=== PATIENT | female | born 1965 | race Caucasian/White ===

== ENCOUNTER → 2019-01-14 | Outpatient (CLI) | payer OTHER, SELFPAY ==
[2019-01-14 09:30] VITALS: BMI 45.1
--- NOTE | 2019-01-14 09:57 | RAD_ITS ---
STUDY: X-RAY - LEFT KNEE REASON FOR EXAM: Female, 53 years old. Pain, swelling TECHNIQUE: 4 view(s) of the knee. COMPARISON: None. FINDINGS: Normal visualized distal femur. Normal visualized proximal tibia and fibula. Normal proximal tibiofibular articulation. There is moderate degenerative arthrosis of the medial femorotibial compartment with moderate joint space narrowing. There is moderate degenerative arthrosis of the lateral femorotibial compartment with moderate joint space narrowing. There is moderate degenerative arthrosis of the patellofemoral articulation. Anterior soft tissue swelling RAD/Knee 4 or More Views IMPRESSION: Degenerative arthrosis with anterior soft tissue swelling, no demonstrated fracture. Electronically Signed: Anatoly Read MD at 10:19 EDT , Service support ,
== END | disposition home or self-care (01) ==
LOC: HPRAD 09:50
PROVIDERS: Family Provider Internal Medicine; PCP Internal Medicine; Referring Provider Physician Assistant Medical; Visit Provider Physician Assistant Medical
DX: S80.02XA Contusion of left knee, initial encounter (principal)
CPT/HCPCS: 73564

== ENCOUNTER → 2019-01-27 10:48 | Outpatient (CLI) | payer OTHER, SELFPAY ==
[2019-01-24 11:03] VITALS: BMI 45.1
--- NOTE | 2019-01-27 11:08 | MRI_ITS ---
STUDY: MRI LEFT KNEE REASON FOR EXAM: Female, 53 years old. Left knee pain. Fall. TECHNIQUE: Standardized fat and water weighted pulse sequences were obtained in all 3 orthogonal planes. COMPARISON: X-ray dated January 14, 2019. FINDINGS: Grade 2/3 cartilage loss of the patellofemoral articulation. Medial compartment grade 4 cartilage loss. Lateral compartment grade 3/4 cartilage loss. Subacute nondisplaced posterior lateral tibial corner fracture (sagittal image 20 series 8) with bone marrow edema/contusion extending across the tibial plateau predominating laterally. No dislocation. No acute cortical destruction. Lateral meniscus anterior horn degenerative tear (sagittal images 16 through 20 series 8). Medial meniscus extensive degeneration with extensive tear and minimal intact posterior horn tissue (sagittal images 7 through 11 series 8). Severe anterior cruciate ligament degeneration with partial tear (sagittal image 14 series 8). Normal posterior cruciate ligament. Moderate volume joint effusion. Large popliteal cyst. Moderate soft tissue swelling. Small varicose veins. Normal medial collateral ligamentous complex (MCL). Normal distal semimembranosus, gracilis and semitendinosus tendons. Normal proximal tibiofibular articulation. Normal lateral collateral (fibular) ligament. Normal popliteus tendon. Normal biceps femoris tendon. Normal medial and lateral patellar retinaculum. Normal quadriceps tendon. Normal patellar tendon. Normal Hoffa's fat pad. MRI/Lower Ext Joint Only (Routine) IMPRESSION: Subacute nondisplaced posterior lateral tibial corner fracture with corresponding bone contusion/edema Left knee moderate/severe tricompartment osteoarthritis Medial and lateral meniscal tears Severe ACL degeneration with partial tear Moderate volume joint effusion, large popliteal cyst and moderate soft tissue swelling Electronically Signed: Jay Mccoy DO at 15:05 EDT Tel , Service support ,
== END ==
PROVIDERS: Family Provider Internal Medicine; PCP Internal Medicine; Referring Provider Physician Assistant; Visit Provider Physician Assistant
DX: S80.02XA Contusion of left knee, initial encounter (principal); S83.92XA Sprain of unspecified site of left knee, initial encounter; S80.212A Abrasion, left knee, initial encounter
CPT/HCPCS: 73721

== ENCOUNTER → 2019-08-17 11:28 | Outpatient (CLI) | payer OTHER, SELFPAY ==
[2019-08-17 11:25] VITALS: BMI 45.1
--- NOTE | 2019-08-17 11:31 | RAD_ITS ---
STUDY: X-RAY - RIGHT FOOT CLINICAL: Female, 54 years old. TECHNIQUE: 3 view(s) of the foot. COMPARISON: None. FINDINGS: There are multiple fractures involving the necks of the second, third, fourth and fifth metatarsals with minimal angulation. Marked osteoporosis is noted. There is plantar heel spur. No soft tissue swelling seen No other abnormality detected RAD/Foot min 3 Views IMPRESSION: Fractures of the necks of the second, third, fourth and fifth metatarsal with minimal angulation Electronically Signed: Jonathan Shah, at 12:18 EST Tel , Service support ,
== END ==
PROVIDERS: Family Provider Internal Medicine; PCP Internal Medicine; Referring Provider Physician Assistant; Visit Provider Physician Assistant
DX: S99.921A Unspecified injury of right foot, initial encounter (principal)
CPT/HCPCS: 73630

== ENCOUNTER 2021-07-04 12:27 | Emergency (ER) | payer MEDICAID, SELFPAY ==
[2021-07-04 12:27] VITALS: BP 125/91; PULSE 102; RESP 20; TEMP 36.6; O2SAT 97; BMI 46.5
[2021-07-04 12:47] VITALS: PULSE 97; RESP 22; O2SAT 96
[2021-07-04 12:48] VITALS: O2SAT 96
--- NOTE | 2021-07-04 12:50 | EX.ED.DYSGE1 ---
HPI History of Present Illness Chief Complaint: Shortness of Breath Narrative Narrative: The patient has had coronavirus, cough shortness of breath tested positive no more than 7 days [facility]. She indicates she has persistent shortness of breath she presents for evaluation she has no other past history specifically history of asthma [place] PE DVT she works in a clean factory she was not vaccinated for unspecified reasons PFSH PFS Medical History (Updated 07/04/21 @ 13:[address] Ger Maria MD) HTN (hypertension) Hx of pancreatitis Home Medications ergocalciferol (vitamin D2) 1,250 mcg (50,000 unit) capsule 1,250 mcg PO DAILY 84 Days #12 cap 01/14/19 [History Last Taken Unknown] lisinopril 20 mg-hydrochlorothiazide 25 mg tablet 1 tab PO DAILY 90 Days #90 tab 01/14/19 [History Last Taken Unknown] sertraline 25 mg tablet 25 mg PO DAILY 90 Days #90 tab 01/14/19 [History Last Taken Unknown] cyclobenzaprine 10 mg tablet 10 mg PO TID PRN #30 tab 01/24/19 [Rx Last Taken Unknown] Allergy/AdvReac Type Severity Reaction Status Date / Time No Known Allergies Allergy Unverified 09/12/19 13:59 Surgical History History of hernia repair Hx of section Social History (Updated 09/12/19 @ 15:37 by Ilir BARKER, PA) Smoking Status: Never smoker alcohol intake: never ROS ROS ED Constitutional Constitutional ED: Reports subjective, sweats and other; Denies chills, fever(s) or weight loss Eyes Eyes: Denies blurry vision or change in vision ENT ENT ED: Denies ear pain Cardiovascular Cardiovascular: Reports dyspnea; Denies chest pain or palpitations Respiratory/Chest Respiratory/Chest: Reports cough and dyspnea Gastrointestinal Gastrointestinal: Denies abdominal pain, nausea or vomiting Genitourinary Genitourinary ED: Denies dysuria or hematuria Musculoskeletal Musculoskeletal: Denies arthralgias or myalgias Integumentary Reports rash; Denies abscess Neurologic Neurologic: Denies weakness Psychiatric Psychiatric: Denies anxiety or depression Endocrine Endocrinology: Denies polydipsia or polyuria Allergic/Immunologic Allergic/Immunologic ED: Denies urticaria EXAM Physical Exam Const Vital Signs: 07/04/21 12:27 10/14/21 12:47 07/04/21 12:48 Temperature 97.8 F Temperature Source Temporal Pulse Rate 102 H 97 Respiratory Rate 20 H 22 H Respiratory Effort Short of Breath Respiratory Depth Deep Respiratory Pattern Tachypnea Blood Pressure 125/91 H Blood Pressure Mean 102 Pulse Ox 97 96 Oxygen Delivery Method Room Air Room Air Room Air 07/04/21 13:20 Temperature Temperature Source Pulse Rate 97 Respiratory Rate 24 H Respiratory Effort Respiratory Depth Respiratory Pattern Blood Pressure Blood Pressure Mean Pulse Ox 98 Oxygen Delivery Method Room Air Positive well developed General Appearance ED: well developed HEENT Reports normocephalic Negative for trauma Eyes EOMs intact bilaterally Neck supple Chest Wall inspection of chest normal Resp normal respiratory effort Cardio regular rate GI non-tender and non-distended Back/Spine Back/Spine Narrative: unremarkable Extremity normal to inspection Neuro oriented x3 and CN's II-XII intact bilaterally Sensorium / Orientation: alert Psych mental status grossly normal Skin no rashes or lesions noted MDM MDM MDM Narrative Medical decision making narrative: Patient's is pulse ox is 97% on room air she has a dry cough she has some minimal rhonchorous breath sounds she is in no distress her BMI is elevated to about 47, clinically when she is not coughing she looks well given all the above chest x-ray aerosols and will proceed with management she is eating and drinking well executing daily activities she has had illness for no more than 7 days she is comfortable discharge home potential monoclonal antibody therapy The patient's chest x-ray to my review and radiology shows findings consistent with Covid pneumonitis the radiology noted some nonspecific abnormality potentially in the left upper abdomen explained this finding to the patient, at this time we discussed Covid management patient is comfortable discharge home her pulse ox again is 98% on room air she will be treated with Proventil inhaler Decadron she will be referred for monoclonal antibody outpatient therapy she will follow with her outpatient providers including clinic and return for change in symptoms Home stable Final impression COVID-19 pneumonia infection Radiography Diagnostic Testing: Clinical Impression(s) from Imaging Studies Chest X-Ray 07/04/21 12:54 IMPRESSION: Patchy bibasilar pulmonary infiltrates. Questionable 4 cm x 2.7 cm rounded soft tissue density along the medial aspect of the left upper quadrant. Electronically Signed: Azael Kirkland MD at 13:07 EDT , Service support , Discharge Plan Triage Chief Complaint: Shortness of Breath ED Provider: Ger Maria Dx/Rx/DC Orders Clinical Impression: COVID-19 Instructions: Coronavirus Disease 2019 (COVID-19): Caring for Yourself or Others Prescriptions: No Action sertraline 25 mg tablet 25 mg PO DAILY 90 Days Qty: 90 RF: 0 lisinopril-hydrochlorothiazide 20-25 mg tablet 1 tab PO DAILY 90 Days Qty: 90 RF: 0 ergocalciferol (vitamin D2) 50,000 unit capsule 1,250 mcg PO DAILY 84 Days Qty: 12 RF: 0 cyclobenzaprine 10 mg tablet 10 mg PO TID PRN (Reason: muscle spasm) Qty: 30 RF: 0 Other Ambulatory Orders: COVID Outpatient Monoclonal Antibody Referral (Routine) Timeframe: 1 Day Facility: [facility] - Location: [facility] Ordered By: Dr. Ger Maria Primary Care Provider: Jennifer Alcantara Referrals: Jennifer Alcantara MD [Primary Care Provider] -
--- NOTE | 2021-07-04 12:54 | RAD_ITS ---
STUDY: X-RAY CHEST REASON FOR EXAM: Female, 56 years old. Cough Covid TECHNIQUE: PA and lateral views of the chest. COMPARISON: None. FINDINGS: EKG electrodes are seen. Patchy bilateral pulmonary infiltrates. There is no demonstrated pleural abnormality. Normal size heart. Normal mediastinum and jewel. Normal visualized pulmonary arteries. Normal visualized aortic arch and descending thoracic aorta. There are diffuse degenerative changes of the visualized thoracic spine. Normal visualized ribs, clavicles, and shoulders. Questionable 4 cm x 2.7 cm soft tissue density overlying the left upper abdomen. RAD/Chest PA and Lateral IMPRESSION: Patchy bibasilar pulmonary infiltrates. Questionable 4 cm x 2.7 cm rounded soft tissue density along the medial aspect of the left upper quadrant. Electronically Signed: Azael Kirkland MD at 13:07 EDT , Service support ,
[2021-07-04 13:20] VITALS: PULSE 97; RESP 24; O2SAT 98
[2021-07-04] MEDS: dexAMETHasone 4 MG Tablet 6 MG PO (14:14)
[2021-07-04 14:15] VITALS: BP 126/84; PULSE 101; RESP 20; O2SAT 97
== END 2021-07-04 14:15 | disposition home or self-care (01) ==
LOC: ED 13:18
PROVIDERS: Emergency Provider Emergency Medicine; PCP Internal Medicine
DX: U07.1 COVID-19 (principal); I10 Essential (primary) hypertension; Z87.19 Personal history of other diseases of the digestive system; Z79.899 Other long term (current) drug therapy
CPT/HCPCS: 71046; 99283

== ENCOUNTER 2021-07-06 10:43 | Outpatient (CLI) | payer MEDICAID, SELFPAY ==
[2021-07-06] MEDS: 0.9% Saline Lock 10 ML Syringe IV (11:02)
[2021-07-06 11:05] VITALS: BP 117/95; PULSE 99; RESP 16; TEMP 36.9; O2SAT 98; BMI 45.5
[2021-07-06 11:44] VITALS: BP 114/76; PULSE 77; RESP 16; TEMP 36.7; O2SAT 97
[2021-07-06 12:43] VITALS: BP 121/81; PULSE 81; RESP 16; TEMP 36.7; O2SAT 98
== END 2021-07-06 12:50 | disposition home or self-care (01) ==
LOC: MS3OUT 10:44 → MS3 10:44
PROVIDERS: PCP Internal Medicine; Referring Provider Nurse Practitioner Adult Health; Visit Provider Nurse Practitioner Adult Health
DX: Z23 Encounter for immunization (principal); U07.1 COVID-19
CPT/HCPCS: J7050; M0243; A4216; Q0244